=== PATIENT | male | born 2000 | race Caucasian/White ===

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

== ENCOUNTER 2020-06-06 09:12 | Emergency (ER) | payer MEDICAID ==
[~2020-06-06] VITALS: Ht 188 cm; Wt 81.8 kg
[2020-06-06] MEDS ORDERED: DOXYCYCLINE HYCLATE 100 MG TABLET PO ONE (10:00)
[2020-06-06] MEDS ORDERED: LIDOCAINE 1% 10 ML VIAL SQ ONE (10:00)
[2020-06-06 10:20] VITALS: BP 119/81
== END 2020-06-06 10:30 | disposition home or self-care (01) ==
LOC: EMS 09:12
DX: L02.01 Cutaneous abscess of face (principal); L70.9 Acne, unspecified; F17.210 Nicotine dependence, cigarettes, uncomplicated; F12.90 Cannabis use, unspecified, uncomplicated
CPT/HCPCS: 10160; 99284; J3490

== ENCOUNTER 2020-12-09 09:31 | Emergency (ER) | payer MEDICAID ==
[~2020-12-09] VITALS: Ht 188 cm; Wt 79.5 kg
[2020-12-09] MEDS ORDERED: LIDOCAINE 1% 10 ML VIAL PERC ONE (12:30)
[2020-12-09] MEDS ORDERED: BACITRACIN 0.9 GM PACKET OINTMENT TP ONE (13:30)
[2020-12-09 14:00] VITALS: BP 114/89
== END 2020-12-09 14:17 | disposition home or self-care (01) ==
LOC: EMS 09:31
DX: S81.011A Laceration without foreign body, right knee, initial encounter (principal); W19.XXXA Unspecified fall, initial encounter; Y93.89 Activity, other specified; Y92.89 Other specified places as the place of occurrence of the external cause; Y99.8 Other external cause status
CPT/HCPCS: 12002; 99283; J3490

== ENCOUNTER 2022-03-16 12:44 | Emergency (ER) | payer MEDICAID ==
[~2022-03-16] VITALS: Ht 188 cm; Wt 81.8 kg
[2022-03-16 13:54] VITALS: BP 113/59
[2022-03-16] MEDS ORDERED: CLOT15CR29 TP (15:37)
== END 2022-03-16 16:04 | disposition home or self-care (01) ==
LOC: EMS 12:58
DX: B35.6 Tinea cruris (principal); N04.9 Nephrotic syndrome with unspecified morphologic changes; Z98.890 Other specified postprocedural states
CPT/HCPCS: 99282; Z7502

== ENCOUNTER 2022-10-23 08:09 | Emergency (ER) | payer MEDICAID ==
[~2022-10-23] VITALS: Ht 188 cm; Wt 90.9 kg
[~2022-10-23 08:09] MED LIST: CLOT15CR29 TP
[2022-10-23 08:13] VITALS: TEMP 98
[2022-10-23 08:33] VITALS: BP 116/67; PULSE 68; RESP 18
[2022-10-23] MEDS ORDERED: SULF-261 PO (08:35)
[2022-10-23] MEDS ORDERED: CEPH-558 PO (08:35)
== END 2022-10-23 08:48 | disposition home or self-care (01) ==
LOC: EMS 08:22
DX: L02.211 Cutaneous abscess of abdominal wall (principal); Z98.890 Other specified postprocedural states
CPT/HCPCS: 99283; Z7502

== ENCOUNTER 2022-11-25 09:56 | Emergency (ER) | payer MEDICAID ==
[~2022-11-25] VITALS: Ht 190.5 cm; Wt 90.9 kg
[~2022-11-25 09:56] MED LIST changes: +CEPH-558 PO; +SULF-261 PO
[2022-11-25 10:06] VITALS: TEMP 98.7
[2022-11-25] MEDS ORDERED: IBUPROFEN 600 MG TABLET PO ONE (10:30)
[2022-11-25 11:20] VITALS: BP 138/69; PULSE 92; RESP 16
[2022-11-25] MEDS ORDERED: SULF-261 PO (11:23)
[2022-11-25] MEDS ORDERED: CEPH-558 PO (11:23)
[2022-11-25] MEDS ORDERED: MUPI1OIN5 TP (11:23)
[2022-11-25] MEDS ORDERED: IBUP-1492 PO (11:23)
== END 2022-11-25 12:22 | disposition home or self-care (01) ==
LOC: EMS 10:12
DX: S89.91XA Unspecified injury of right lower leg, initial encounter (principal); A49.02 Methicillin resistant Staphylococcus aureus infection, unspecified site; L08.9 Local infection of the skin and subcutaneous tissue, unspecified; L02.415 Cutaneous abscess of right lower limb; Z98.890 Other specified postprocedural states; V00.131A Fall from skateboard, initial encounter; Y93.89 Activity, other specified; Y92.89 Other specified places as the place of occurrence of the external cause; Y99.8 Other external cause status
CPT/HCPCS: 99283

== ENCOUNTER 2024-11-12 08:29 | Emergency (ER) | payer MEDICAID ==
[~2024-11-12] VITALS: Ht 190.5 cm; Wt 90.9 kg
[~2024-11-12 08:29] MED LIST changes: -CLOT15CR29 TP; +IBUP-1492 PO; +MUPI1OIN5 TP
[2024-11-12 08:38] VITALS: TEMP 98
[2024-11-12] MEDS: BACITRACIN 0.9 GM PACKET OINTMENT TP ONE (10:36)
[2024-11-12 11:15] VITALS: BP 118/72; PULSE 90; RESP 15; O2SAT 100
[2024-11-12] MEDS ORDERED: IBUP-1492 PO (11:37)
== END 2024-11-12 11:36 | disposition home or self-care (01) ==
LOC: EMS 08:29
DX: S86.912A Strain of unspecified muscle(s) and tendon(s) at lower leg level, left leg, initial encounter (principal); Z98.890 Other specified postprocedural states; Z79.899 Other long term (current) drug therapy; X58.XXXA Exposure to other specified factors, initial encounter; Y93.89 Activity, other specified; Y92.89 Other specified places as the place of occurrence of the external cause; Y99.8 Other external cause status
CPT/HCPCS: 99283